=== PATIENT | female | born 1995 | race Caucasian/White ===

== ENCOUNTER 2018-02-20 11:30 | Emergency (ER) | payer MEDICAID ==
[2018-02-20] MEDS ORDERED: NS 1,000 ML IV ONE (12:05)
[2018-02-20 12:15] LABS: PLATELET COUNT 293 10^3/uL (150-400)
[2018-02-20] MEDS ORDERED: KETOROLAC 15 MG/1 ML SDV IVP ONE (13:17)
--- NOTE | 2018-02-20 13:23 | EDPHY ---
H & P Stated Complaint: abnormal and heavy vaginal bleeding. lightheaded Time Seen by Provider: 02/20/18 12:39 HPI/ROS: CHIEF COMPLAINT: Vaginal bleeding HISTORY OF PRESENT ILLNESS: 22-year-old female SAB 1 presents with vaginal bleeding. For weeks ago she had a normal menstrual period. 3 days later, she began having abnormal vaginal bleeding. She was seen at an outside emergency department and was diagnosed with dysfunctional uterine bleeding. She saw her OBGYN last week and was prescribed control pills. She did not fill the prescription for control pills because of cost. She continues to have vaginal bleeding, using 5 pads today. Associated with mild pelvic cramping. REVIEW OF SYSTEMS: complete 10 point ROS negative except at noted in the HPI - Personal History LMP (Females 10-55): 8-14 Days Ago Current Tetanus/Diphtheria Vaccine: Unsure Current Tetanus Diphtheria and Acellular Pertussis (TDAP): Unsure - Medical/Surgical History Hx Asthma: No Hx Chronic Respiratory Disease: No Hx Diabetes: No Hx Cardiac Disease: No Hx Renal Disease: No Hx Cirrhosis: No Hx Alcoholism: No Hx HIV/AIDS: No Hx Splenectomy or Spleen Trauma: No Other PMH: - Social History Smoking Status: Never smoked Constitutional: Initial Vital Signs Temperature (C) 36.3 C 02/20/18 11:34 Heart Rate 72 02/20/18 11:34 Respiratory Rate 16 02/20/18 11:34 Blood Pressure 100/68 02/20/18 11:34 O2 Sat (%) 98 02/20/18 11:34 O2 Delivery Mode Room Air Allergies/Adverse Reactions: No Known Allergies Allergy (Unverified 02/20/18 11:39) Home Medications: Medication Instructions Recorded Norethindrone [Norlyda] 0.35 mg PO DAILY #3 packet 02/20/18 Medical Decision Making ED Course/Re-evaluation: This patient presents with dysfunctional uterine bleeding. IV normal saline 1 L given for dehydration. Toradol 15 mg IV given for pelvic cramping. Hematocrit is normal and there is no evidence of serious hemorrhage. Will start taking control pills for control vaginal bleeding. Differential Diagnosis: Includes though not limited to ectopic , miscarriage, intrauterine , severe anemia, hypotension. - Data Points Laboratory Results: Laboratory Results 02/20/18 12:05 02/20/18 12:05 02/20/18 02/20/18 02/20/18 12:05 12:05 12:05 WBC 6.65 10^3/uL 10^3/uL (3.80-9.50) RBC 5.05 10^6/uL 10^6/uL (4.18-5.33) Hgb 13.8 g/dL g/dL (12.6-16.3) Hct 43.4 % % (38.0-47.0) MCV 85.9 fL fL (81.5-99.8) MCH 27.3 pg L pg (27.9-34.1) MCHC 31.8 g/dL L g/dL (32.4-36.7) RDW 12.4 % % (11.5-15.2) Plt Count 293 10^3/uL 10^3/uL (150-400) MPV 10.4 fL fL (8.7-11.7) Neut % (Auto) 70.8 % % (39.3-74.2) Lymph % (Auto) 19.4 % % (15.0-45.0) [place] % (Auto) 7.8 % % (4.5-13.0) Eos % (Auto) 0.9 % % (0.6-7.6) Baso % (Auto) 0.8 % % (0.3-1.7) Nucleat RBC Rel Count 0.0 % % (0.0-0.2) Absolute Neuts (auto) 4.71 10^3/uL 10^3/uL (1.70-6.50) Absolute Lymphs (auto) 1.29 10^3/uL 10^3/uL (1.00-3.00) Absolute Monos (auto) 0.52 10^3/uL 10^3/uL (0.30-0.80) Absolute Eos (auto) 0.06 10^3/uL 10^3/uL (0.03-0.40) Absolute Basos (auto) 0.05 10^3/uL 10^3/uL (0.02-0.10) Absolute Nucleated RBC 0.00 10^3/uL 10^3/uL (0-0.01) Immature Gran % 0.3 % % (0.0-1.1) Immature Gran # 0.02 10^3/uL 10^3/uL (0.00-0.10) Sodium 138 mEq/L mEq/L (135-145) Potassium 4.1 mEq/L mEq/L (3.3-5.0) Chloride 104 mEq/L mEq/L (97-110) Carbon Dioxide 28 mEq/l mEq/l (22-31) Anion Gap 6 mEq/L L mEq/L (8-16) BUN 12 mg/dL mg/dL (7-23) Creatinine 0.7 mg/dL mg/dL (0.6-1.0) Estimated GFR > 60 Glucose 89 mg/dL mg/dL (70-100) Calcium 9.4 mg/dL mg/dL (8.5-10.4) Beta HCG, Qual NEGATIVE Urine Color Urine Appearance Urine pH Ur Specific [place] Urine Protein Urine Ketones Urine Blood Urine Nitrate Urine Bilirubin Urine Urobilinogen Ur Leukocyte Esterase Urine RBC Urine WBC Ur Epithelial Cells Urine Bacteria Urine Glucose 02/20/18 11:50 WBC RBC Hgb Hct MCV MCH MCHC RDW Plt Count MPV Neut % (Auto) Lymph % (Auto) [place] % (Auto) Eos % (Auto) Baso % (Auto) Nucleat RBC Rel Count Absolute Neuts (auto) Absolute Lymphs (auto) Absolute Monos (auto) Absolute Eos (auto) Absolute Basos (auto) Absolute Nucleated RBC Immature Gran % Immature Gran # Sodium Potassium Chloride Carbon Dioxide Anion Gap BUN Creatinine Estimated GFR Glucose Calcium Beta HCG, Qual Urine Color PALE YELLOW Urine Appearance CLEAR Urine pH 8.0 H (5.0-7.5) Ur Specific [place] 1.003 (1.002-1.030) Urine Protein NEGATIVE (NEGATIVE) Urine Ketones NEGATIVE (NEGATIVE) Urine Blood 1+ H (NEGATIVE) Urine Nitrate NEGATIVE (NEGATIVE) Urine Bilirubin NEGATIVE (NEGATIVE) Urine Urobilinogen NEGATIVE EU EU (0.2-1.0) Ur Leukocyte Esterase NEGATIVE (NEGATIVE) Urine RBC NONE SEEN /hpf /hpf (0-3) Urine WBC 0-1 /hpf /hpf (0-3) Ur Epithelial Cells TRACE /lpf /lpf (NONE-1+) Urine Bacteria TRACE /hpf H /hpf (NONE SEEN) Urine Glucose NEGATIVE (NEGATIVE) Medications Given: Discontinued Medications Sodium Chloride (Ns) 1,000 mls @ 0 mls/hr IV ONCE ONE; Wide Open PRN Reason: Protocol Stop: 02/20/18 12:06 Last Admin: 02/20/18 12:15 Dose: 1,000 mls Departure - Departure Disposition: Home, Routine, Self-Care Clinical Impression: Dysfunctional uterine bleeding Condition: Good Instructions: Dysfunctional Uterine Bleeding (ED) Additional Instructions: Ibuprofen 600 mg 3 times daily while the pain persists. Referrals: NONE *PRIMARY CARE P,. [Primary Care Provider] - As per Instructions Prescriptions: Norethindrone [Norlyda] 0.35 mg PO DAILY #3 packet
[2018-02-20 13:38] VITALS: BP 113/75
== END 2018-02-20 13:38 | disposition home or self-care (01) ==
DX: N93.8 Other specified abnormal uterine and vaginal bleeding (principal); E86.9 Volume depletion, unspecified
CPT/HCPCS: 96374; J1885